=== PATIENT | male | born 1990 | race Caucasian/White ===

== ENCOUNTER 2021-10-14 02:00 | Emergency (ER) | payer OTHER ==
[2021-10-14 02:18] LABS: HEMOGLOBIN 16.7 gm/dl (14.0-17.5); RED BLOOD COUNT 5.51 M/UL (4.20-5.50); WHITE BLOOD COUNT 11.1 K/UL (4.5-11.0)
[2021-10-14 02:39] LABS: BUN/CREATININE RATIO 9 (0-10)
== END 2021-10-14 05:46 ==
LOC: ER1 02:00
PROVIDERS: Student in an Organized Health Care Education/Training Program
DX: R07.9 Chest pain, unspecified (principal); F17.200 Nicotine dependence, unspecified, uncomplicated
CPT/HCPCS: 71045; 73080; 73502; 80048; 82550; 82553; 84484; 85025; 90471; 90715; 93005; 99285